=== PATIENT | male | born 1995 | race Two or more races ===

== ENCOUNTER 2021-07-24 14:20 | Emergency (ER) | payer MEDICAID ==
[~2021-07-24] VITALS: Ht 177.8 cm; Wt 110.2 kg
[~2021-07-24 14:20] MED LIST: NO HOME MEDS
[2021-07-24 19:54] VITALS: BP 143/91
== END 2021-07-24 20:56 | disposition home or self-care (01) ==
LOC: ER 14:20
DX: S06.0X0A Concussion without loss of consciousness, initial encounter (principal); R51.9 Headache, unspecified; R11.10 Vomiting, unspecified; X58.XXXA Exposure to other specified factors, initial encounter; Y93.89 Activity, other specified; Y92.89 Other specified places as the place of occurrence of the external cause; Y99.8 Other external cause status
CPT/HCPCS: 70450; 99284